=== PATIENT | female | born 1935 | race Caucasian/White ===

== ENCOUNTER 2019-06-13 10:26 | Day surgery (SDC) | payer MEDICARE, OTHER ==
[~2019-06-13] VITALS: Ht 152.4 cm; Wt 73.2 kg
[2019-06-13 11:55] VITALS: BP 116/70; PULSE 72; TEMP 97.6
[2019-06-13] MEDS ORDERED: AMITRIPTYLINE H10 M1 PO (12:04)
[2019-06-13] MEDS ORDERED: DEXILANT30 MG PO (12:05)
[2019-06-13] MEDS ORDERED: PLAVIX 75MG TAB75 MG PO (12:06)
[2019-06-13] MEDS ORDERED: LIPITOR20 MG PO (12:06)
[2019-06-13] MEDS ORDERED: VITAMIN D32000 I1 PO (12:08)
[2019-06-13] MEDS ORDERED: TURMERIC500 MG PO (12:11)
[2019-06-13] MEDS ORDERED: CALCIUM CARBON650 M2 PO (12:11)
[2019-06-13] MEDS ORDERED: MULTIPLE VITAMI1 CAP PO (12:11)
[2019-06-13] MEDS ORDERED: KRILL OIL 3001 EACH PO (12:12)
[2019-06-13] MEDS ORDERED: TYLENOL 500MG500 MG PO (12:12)
[2019-06-13] MEDS ORDERED: STOOL SOFTENER100 M2 PO (12:13)
[2019-06-13 13:30] VITALS: BP 128/59; PULSE 64; TEMP 97.4
--- NOTE | 2019-06-13 13:30 | NUR ---
[place] [facility] [place]. Pt drowsy, but awake. Pt reports pain is "tolerable." and that she feels well. Dressing to chest has small amount of shadowing noted to mid chest. Otherwise dressing is clean, dry and intact. Water given per pt request. Will continue to monitor. Call light within reach. Sisters in room at side.
[2019-06-13 13:45] VITALS: BP 122/71; PULSE 63
--- NOTE | 2019-06-13 13:45 | NUR ---
Pt continues to rest. Tolerating sips of water. Soup and ice cream given per pt request. Will continue to monitor. Call light within reach.
[2019-06-13 14:00] VITALS: BP 120/82; PULSE 68
--- NOTE | 2019-06-13 14:00 | NUR ---
Pt tolerating food and fluids without difficulties. Will continue to monitor. Call light within reach.
[2019-06-13 14:15] VITALS: BP 119/94; PULSE 72
--- NOTE | 2019-06-13 14:15 | NUR ---
Pt continues to rest. Denies pain or nausea. Dressing to chest is unchanged from 1330 assessment. Call light within reach.
[2019-06-13] MEDS ORDERED: NORCO 325 MG-51 TAB PO (14:23)
--- NOTE | 2019-06-13 14:30 | NUR ---
Pt up to restroom with stand by assistance. Gait steady. Pt voids without difficulties. Pt back to room. IV site discontinued with all parts intact. Pt up to dress. Will continue to monitor. Call light within reach.
--- NOTE | 2019-06-13 14:45 | NUR ---
Pt escorted to private car via wheel chair. Pt accompanied by her sisters.
== END 2019-06-13 14:45 | disposition home or self-care (01) ==
LOC: SDCO 10:26
DX: L91.0 Hypertrophic scar (principal); Z79.01 Long term (current) use of anticoagulants; Z79.899 Other long term (current) drug therapy; Z86.73 Personal history of transient ischemic attack (TIA), and cerebral infarction without residual deficits; Z88.6 Allergy status to analgesic agent; Z91.040 Latex allergy status
CPT/HCPCS: J2405; J3010; J7120